=== PATIENT | female | born 1980 | race Caucasian/White ===

== ENCOUNTER → 2018-11-19 | Outpatient (CLI) | payer OTHER | LOC: FIMAGING 11:37 | PROVIDERS: ATTEND Hospitalist | DX: O09.522 Supervision of elderly multigravida, second trimester (principal); Z3A.19 19 weeks gestation of pregnancy; Z98.891 History of uterine scar from previous surgery ==

== ENCOUNTER 2019-04-08 10:56 | Inpatient (IN) | payer OTHER ==
--- NOTE | 2019-03-31 11:25 | GHP ---
[f rep st] PREOP HISTORY AND PHYSICAL DATE OF PLANNED ADMISSION: 04/14/2019. HISTORY OF PRESENT ILLNESS: Patient is a 38-year-old 3, para 1-1-0-2, who will be 40 weeks' gestation. The patient's estimated date of confinement is 04/14/2019, dated by last menstrual period , consistent with a 9-week ultrasound. Patient initiated care at [facility] at 9 weeks' gestation. She has a history of a primary low transverse section for failed vacuum a nd arrest of descent followed by successful vaginal after section. She had a single-l marisol closure of the hysterotomy. Patient has been going back and forth between having a repeat low t ransverse section versus hoping for a vaginal after section versus induction of labor. At this time, patient is planning on having an induction of labor if she does not deliver by 04/14. However, she may change her mind and decided to have a section. The patient's pr egnancy has been uncomplicated. MEDICAL HISTORY: Negative. MEDICATIONS: vitamins and iron. SURGICAL HISTORY: section. ALLERGIES: No known drug allergies. SOCIAL HISTORY: Patient is . She denies tobacco, alcohol, or drug use. She is a stay-at-hernandez e mom. FAMILY MEDICAL HISTORY: Noncontributory. 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 Periods every 28 days, lasting 3 days. She is a 3, para 1 -1-0-2. In 09/2013, she had a primary low transverse section of a 7 pounds 6 ounce male inf ant at 39 weeks' gestation and patient had spontaneous rupture of membranes. Her labor was augmented . She progressed to complete, pushed for 3 hours and had a failed vacuum-assisted vaginal delivery. In 09/2015, she had planned on having a repeat section. However, she went into labor at 36 weeks and 2 days and arrived completely dilated and pushed for 3 contractions and had a successful v aginal after section. Current has been uncomplicated. She received McKena injections because of her history of delivery. The patient denies any history of any abnorma l Pap smears or sexually transmitted diseases. REVIEW OF SYSTEMS: 10-point review of systems is negative. Positive movement. No loss of flu id. No vaginal bleeding. She denies any headache or changes in vision. PHYSICAL EXAMINATION: VITAL SIGNS: Stable. GENERAL APPEARANCE: Alert and oriented x3. MUS[place]UL[place] LETAL: Grossly intact. NEURO: Grossly intact. PSYCH: Appropriate affect. HEART: Regular. LUNG S: Clear to auscultation bilaterally. ABDOMEN: Her abdomen is gravid, nondistended, nontender. EX TREMITIES: Reveal no calf tenderness or edema. Most recent cervical exam, she was 3 cm dilated, 80% effaced, and -2 station. She is not having any contractions. LABS: Blood type O positive. Antibody screen negative. Rubella nonimmune. GBS negative. HBsAg negative. HIV negative. Her 50 g glucose was 83. Her testing is negative. Alpha fetoprotein testing is negative. ASSESSMENT AND PLAN: 1. 38-year-old, 3, para 1-1-0-2, who will be 40 weeks' gestation. She will either have an i nduction of labor or repeat low transverse section. Her family status is complete, but her will have a vasectomy following the surgery, so she declines tubal ligation. Risks and benef its have been reviewed with the patient, and the patient has been properly consented. /[id number]/MODL
[2019-04-08] MEDS ORDERED: EPSOM SALT 454 GM TP PRN (11:10)
[2019-04-08] MEDS ORDERED: IBUPROFEN 600 MG TAB PO PRN (11:10)
[2019-04-08] MEDS ORDERED: MISOPROSTOL 200 MCG TAB PR PRN (11:10)
[2019-04-08] MEDS ORDERED: LIDOCAINE 1% 300 MG/30 ML SDV SC PRN (11:10)
[2019-04-08] MEDS ORDERED: OLIVE OIL 118 ML BTL MISC PRN (11:10)
[2019-04-08] MEDS ORDERED: LR 1,000 ML IV PRN (11:10)
[2019-04-08] MEDS ORDERED: OXYTOCIN/RINGERS LACTATE 1,000 ML IV PRN (11:10)
[2019-04-08] MEDS ORDERED: LR 500 ML IV PRN (11:34)
--- NOTE | 2019-04-08 11:55 | PDHPUP ---
History & Physical Update H&P update statement: This history and physical update is based on an assessment of the patient which was completed after admission or registration (within 24 hours), but prior to the surgery/procedure. patient had a growth ultrasound today due to size less than dates. efw was normal but matthew 4.7 was noted. nst reactive. discussed options of repeat c section vs induction of labor. patient and agreeable to IOL. reviewed risks and benefits. consent signed. will start pitocin and arom. status reassuring H&P update: H&P reviewed & patient examined, changes noted
[2019-04-08 11:59] LABS: PLATELET COUNT 154 10^3/uL (150-400)
[2019-04-08] MEDS ORDERED: OXYTOCIN/RINGERS LACTATE 500 ML IV SCH (12:00)
--- NOTE | 2019-04-08 13:33 | OBPROG ---
Labor Progress Note Assessment/Plan: Assessment: Plan: Subjective/Intrapartum Course: 04/08/19 13:32 pitocin is at 4 mu. patient feeling mild contractions. discussed management options. agreeable to arom. AROM done. small amount of clear fluid. plans epidural but declines for now. status reassuring. Objective: 04/08/19 11:49 Patient ABO/Rh O POSITIVE 04/08/19 11:49 - SVE Dilation (cm): 4 Effacement (%): 100 Station: -1 Membranes: AROM Amniotic Fluid Color: Clear - Contraction Pattern Assessment Current Contraction Pattern: Irregular - Procedures Non-surgical Procedures: Amniotomy Oxytocin Orders Assessment - Pre-Induction/Augmentation Assessment Gestational Age: 39 week(s) and 1 day(s) ICD10 Worksheet Patient Problems: Problems Problem Status Onset Oligohydramnios Acute
[2019-04-08] MEDS ORDERED: LIDOCAINE 1% 300 MG/30 ML SDV ONE (13:54)
[2019-04-08] MEDS ORDERED: OXYTOCIN 10 UNIT/ML VIAL ONE (13:54)
[2019-04-08] MEDS ORDERED: AMMONIA AROMATIC 1 EACH AMP IH ONE (13:54)
[2019-04-08] MEDS ORDERED: OLIVE OIL 118 ML BTL MISC ONE (13:54)
[2019-04-08] MEDS ORDERED: MISOPROSTOL 200 MCG TAB ONE (13:54)
[2019-04-08] MEDS ORDERED: TERBUTALINE SULFATE 1 MG/ML VIAL ONE (13:54)
[2019-04-08] MEDS ORDERED: oxyCODONE IR 5 MG TAB PO PRN (15:25)
[2019-04-08] MEDS ORDERED: HYDROCORTISONE 0.5% CREAM TP PRN (15:25)
--- NOTE | 2019-04-08 16:50 | OBDEL ---
Info Type: Vaginal Presentation at Delivery: Vertex L&D Analgesia/Anesthesia Type: None GBS+: No Intrapartum Medications: Discontinued Medications Generic Name Dose Route Start Last Admin Trade Name Shani PRN Reason Stop Dose Admin Ibuprofen 600 mg 04/08/19 11:10 04/08/19 15:40 Motrin PO 600 mg ONCE PRN Administration post , pain - Hospital Course Intrapartum: 04/08/19 13:32 pitocin is at 4 mu. patient feeling mild contractions. discussed management options. agreeable to arom. AROM done. small amount of clear fluid. plans epidural but declines for now. status reassuring. 04/08/19 16:48 rapid progress to complete. pushed less than ten minutes. missed epidural. Indications for Delivery: Oligohydramnios Vaginal Delivery - Delivery Provider Delivery Physician/CNM: Maryam Carr - Labor and Delivery Onset of Contractions Date: 04/08/19 Onset of Contractions Time: 12:45 Onset of Contractions Type: Induced Rupture of Membranes Date: 04/08/19 Rupture of Membranes Time: 13:45 Rupture of Membranes Type: Artificial Amniotic Fluid Color: Clear Dilation Complete Date: 04/08/19 Dilation Complete Time: 14:26 Placenta Delivery Date: 04/08/19 Placenta Delivery Time: 15:10 Total Hours of Labor: 2 Non-surgical Procedures: Amniotomy Laceration: 2nd Degree Repair: 3-0 Vaginal Sponge Count Correct: Yes Vaginal Needle Count Correct: Yes Vaginal Sweep Performed: No EBL: 450 Delivery Events: Nuchal Cord Delivery Comment: rapid progress to complete after arom. missed epidural. pushed well . - Medications Labor Augmentation/Induction Methods Used: Pitocin Labor Augmentation/Induction Indication: Other (Specify) (oligohydramnios) Data JONNA: 04/14/19 Gestational Age: 39 week(s) and 1 day(s) Bryant Delivery Date: 04/08/19 Delivery Time: 14:59 Sex of Infant: Male Score (1 Min): 8 Score (5 Min): 9 ICD10 Worksheet Patient Problems: Problems Problem Status Onset Oligohydramnios Acute
--- NOTE | 2019-04-08 19:05 | OBPP ---
Progress Note Assessment/Plan: Assessment: Plan: Subjective/ Course: 04/08/19 18:58 called to room for patient having passed multiple clots. patient had gotten up to the bathroom and got light headed and passed out. she had two episodes of clots. first one was 415 and second was 450. patient was able to empty bladder. bedside ultrasound showed clot vs rpoc. patient was given nitrous oxide and bedside uterine sweep was done. able to remove a 3 cm piece of placenta. one additional pass and a small piece removed. neither were adherent to uterine wall. bedside ultrasound done. thin stripe overall. discussed possibility of rpoc and need for d and c. patient feeling lightheaded and dizzy, vital signs stable. will continue close observation,. Objective: 04/08/19 11:49 Patient ABO/Rh O POSITIVE 04/08/19 11:49 Uterine Position/Fundal Height: Umbilicus -3 Uterine Tone: Firm Physical Exam - Physical Exam Respiratory: chest non-tender, lungs clear, normal breath sounds Cardiac/Chest: normal peripheral pulses, regular rate, rhythm Abdomen: normal bowel sounds, non-tender Extremities: normal range of motion, non-tender, normal inspection, normal capillary refill Skin: normal color, warm/dry Neuro/Psych: no motor/sensory deficits, alert, normal mood/affect, oriented x 3
[2019-04-08] MEDS ORDERED: ceFAZolin 2 GM/DEXTROSE 100 ML IV ONE (20:07)
[2019-04-08] MEDS: IBUPROFEN 600 MG TAB PO PRN ×2 (21:05→22:32)
[2019-04-08] MEDS: ACETAMINOPHEN 325 MG TAB PO PRN (21:07)
[2019-04-09] MEDS: ACETAMINOPHEN 325 MG TAB PO PRN ×4 (03:29→22:46)
[2019-04-09] MEDS: IBUPROFEN 600 MG TAB PO PRN ×4 (04:37→22:46)
[2019-04-09] MEDS: DOCUSATE SODIUM 100 MG CAP PO PRN ×2 (10:23→20:28)
--- NOTE | 2019-04-09 14:43 | OBPP ---
Progress Note Assessment/Plan: Assessment: PPD 1 s/p RPOCs with PPH anemia Rub NI Plan: iron BID, MMR 04/09/19 14:40 Subjective/ Course: 04/08/19 18:58 called to room for patient having passed multiple clots. patient had gotten up to the bathroom and got light headed and passed out. she had two episodes of clots. first one was 415 and second was 450. patient was able to empty bladder. bedside ultrasound showed clot vs rpoc. patient was given nitrous oxide and bedside uterine sweep was done. able to remove a 3 cm piece of placenta. one additional pass and a small piece removed. neither were adherent to uterine wall. bedside ultrasound done. thin stripe overall. discussed possibility of rpoc and need for d and c. patient feeling lightheaded and dizzy, vital signs stable. will continue close observation,. 04/09/19 14:43 Pt doing well. states bld much less. baby has been cluster feeding. urinating much better. pain controlled with ibu/tyl. wanting to stay here and rest. Is so happy to be done with . Objective: 04/09/19 05:45 Patient ABO/Rh O POSITIVE 04/08/19 11:49 Temp Pulse Resp BP Pulse Ox 36.6 C 87 14 109/64 98 04/09/19 08:50 04/09/19 08:50 04/09/19 08:50 04/09/19 08:50 04/09/19 08:50 Uterine Position/Fundal Height: Umbilicus -1 Uterine Tone: Firm Physical Exam - Physical Exam Abdomen: non-tender, soft, other (FF at umb -2) Extremities: non-tender, pedal edema (minimal) Skin: normal color, warm/dry Neuro/Psych: alert, normal mood/affect
[2019-04-09] MEDS ORDERED: MEASLES,MUMPS&RUBELLA VACC/PF 0.5 ML VIAL SC ONE (16:30)
[2019-04-09] MEDS: FERRO-SEQUELS 65 MG TAB.ER PO SCH (20:28)
[2019-04-09 20:58] VITALS: BP 114/65
[2019-04-10] MEDS: IBUPROFEN 600 MG TAB PO PRN ×2 (05:00→10:58)
[2019-04-10] MEDS: ACETAMINOPHEN 325 MG TAB PO PRN ×2 (05:01→10:58)
--- NOTE | 2019-04-10 10:34 | OBPP ---
Progress Note Assessment/Plan: Assessment: 1) s/p PPD #2 - pt is stable 2) RPOCs with PPH 3) Anemia - pt is asymptomatic, on iron 4) Rubella NI - s/p MMR vaccine Plan: Plan for d/c home today Instructions reviewed with pt No Rx given Cont Ibu, Tylenol, iron and colace Cont PNV Pelvic rest RTC in 3 weeks for a mood check and 6 weeks for a pp check 04/10/19 10:31 Subjective/ Course: 04/08/19 18:58 called to room for patient having passed multiple clots. patient had gotten up to the bathroom and got light headed and passed out. she had two episodes of clots. first one was 415 and second was 450. patient was able to empty bladder. bedside ultrasound showed clot vs rpoc. patient was given nitrous oxide and bedside uterine sweep was done. able to remove a 3 cm piece of placenta. one additional pass and a small piece removed. neither were adherent to uterine wall. bedside ultrasound done. thin stripe overall. discussed possibility of rpoc and need for d and c. patient feeling lightheaded and dizzy, vital signs stable. will continue close observation,. 04/09/19 14:43 Pt doing well. states bld much less. baby has been cluster feeding. urinating much better. pain controlled with ibu/tyl. wanting to stay here and rest. Is so happy to be done with . 04/10/19 10:33 Pt seen and examined. Doing well with no complaints. Mild cramping, relief with po meds. Mod lochia. She is OOB without dizziness, tra regular diet, voiding without difficulty and had BM x 1. BF is going well. Ready to go home today. Objective: 04/09/19 05:45 Patient ABO/Rh O POSITIVE 04/08/19 11:49 Temp Pulse Resp BP Pulse Ox 36.9 C 86 16 114/65 95 04/09/19 20:00 04/09/19 20:00 04/09/19 20:00 04/09/19 20:00 04/09/19 20:00 Uterine Position/Fundal Height: Umbilicus -2 Uterine Tone: Firm Physical Exam - Physical Exam General Appearance: WD/WN, alert, no apparent distress Respiratory: lungs clear, normal breath sounds Cardiac/Chest: regular rate, rhythm Abdomen: normal bowel sounds, non-tender, soft Extremities: non-tender, normal inspection Skin: warm/dry, pallor Neuro/Psych: alert, normal mood/affect, oriented x 3
--- NOTE | 2019-04-10 10:35 | OBGCSDC ---
General Delivery Information - General Info : 3 Para: 3 Abortions: 0 Type: Vaginal L&D Analgesia/Anesthesia Type: None Admission Date: 04/08/19 Labs: Patient ABO/Rh O POSITIVE 04/08/19 11:49 Hct 26.4 % (38.0-47.0) L 04/09/19 05:45 Temp Pulse Resp BP Pulse Ox 04/09/19 20:00 36.9 C 86 16 114/65 95 - Hospital Course Intrapartum: 04/08/19 13:32 pitocin is at 4 mu. patient feeling mild contractions. discussed management options. agreeable to arom. AROM done. small amount of clear fluid. plans epidural but declines for now. status reassuring. 04/08/19 16:48 rapid progress to complete. pushed less than ten minutes. missed epidural. : 04/08/19 18:58 called to room for patient having passed multiple clots. patient had gotten up to the bathroom and got light headed and passed out. she had two episodes of clots. first one was 415 and second was 450. patient was able to empty bladder. bedside ultrasound showed clot vs rpoc. patient was given nitrous oxide and bedside uterine sweep was done. able to remove a 3 cm piece of placenta. one additional pass and a small piece removed. neither were adherent to uterine wall. bedside ultrasound done. thin stripe overall. discussed possibility of rpoc and need for d and c. patient feeling lightheaded and dizzy, vital signs stable. will continue close observation,. 04/09/19 14:43 Pt doing well. states bld much less. baby has been cluster feeding. urinating much better. pain controlled with ibu/tyl. wanting to stay here and rest. Is so happy to be done with . 04/10/19 10:33 Pt seen and examined. Doing well with no complaints. Mild cramping, relief with po meds. Mod lochia. She is OOB without dizziness, tra regular diet, voiding without difficulty and had BM x 1. BF is going well. Ready to go home today. Vaginal - Delivery Provider Delivery Physician/CNM: Maryam Carr - Diagnosis Labor: Induced Rupture of Membranes Type: Artificial Amniotic Fluid Color: Clear Laceration: 2nd Degree Repair: 3-0 Delivery Events: Nuchal Cord - Procedures Non-surgical Procedures: Amniotomy - Delivery Non-surgical Procedures: Amniotomy EBL: 450 Sandy Data JONNA: 04/14/19 Gestational Age: 39 week(s) and 3 day(s) Bryant Delivery Date: 04/08/19 Delivery Time: 14:59 Sex of : Male Sandy Weight (gm): 3358 g Score (1 Min): 8 Score (5 Min): 9 Discharge Information - Discharge Information Condition: Good Instruction/Follow Up: Four Weeks (3 weeks with PPWC for a mood check), Six Weeks (for a routine pp visit)
[2019-04-10] MEDS: FERRO-SEQUELS 65 MG TAB.ER PO SCH (10:58)
== END 2019-04-10 11:15 | disposition home or self-care (01) | DRG 807 ==
LOC: FLD 10:56 → FOB 22:05
PROVIDERS: ADMIT Obstetrics & Gynecology; ATTEND Obstetrics & Gynecology
DX: O41.03X0 Oligohydramnios, third trimester, not applicable or unspecified (principal); O70.1 Second degree perineal laceration during delivery; O69.81X0 Labor and delivery complicated by cord around neck, without compression, not applicable or unspecified; O34.212 Maternal care for vertical scar from previous cesarean delivery; O73.1 Retained portions of placenta and membranes, without hemorrhage; Z23 Encounter for immunization; Z3A.39 39 weeks gestation of pregnancy; Z37.0 Single live birth
CPT/HCPCS: J0690; J2590; J3105